=== PATIENT | female | born 2005 | race Caucasian/White ===

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

== ENCOUNTER → 2023-02-15 | Outpatient (CLI) | payer BC ==
[~2023-02-15] MED LIST: Norco 5-325 Ta1 EACH PO
[2023-02-15 11:55] LABS: BASOPHILS ABSOLUTE AUTO 0.04 K/mm3 (0.00-0.23); BASOPHILS PERCENT AUTO 1 % (0-2); EOSINOPHILS PERCENT AUTO 2 % (0-6); Hematocrit 40.9 % (33.0-51.0); Hemoglobin 14.2 g/dL (11.5-16.0); IMMATURE GRAN ABSOLUTE AUTO 0.02 K/mm3 (0.00-0.10); IMMATURE GRAN PERCENT AUTO 0 % (0-1); LYMPHOCYTES ABSOLUTE AUTO 2.24 K/mm3 (0.84-5.20); LYMPHOCYTES PERCENT AUTO 33 % (21-46); MONOCYTES ABSOLUTE AUTO 0.34 K/mm3 (0.16-1.47); MONOCYTES PERCENT AUTO 5 % (4-13); Mean Corpuscular HGB 30.9 pg (26.0-34.0); Mean Corpuscular HGB Conc 34.7 g/dL (31.5-36.5); Mean Corpuscular Volume 89 fL (80-100); Mean Platelet Volume 9.5 fL (9.1-12.4); NEUTROPHILS ABSOLUTE AUTO 4.08 K/mm3 (1.96-9.15); NEUTROPHILS PERCENT AUTO 60 % (41-73); Platelet Count 285 K/mm3 (150-400); RDW Coefficient Variation 12.9 % (11.7-14.2); RDW Standard Deviation 41.8 fL (35.1-46.3); Red Blood Cell Count 4.59 M/mm3 (3.80-5.20); White Blood Cell Count 6.82 K/mm3 (4.00-11.30)
[2023-02-15 12:21] LABS: Albumin, Blood 3.8 g/dL (3.4-5.0); Albumin/Globulin Ratio 1.1 (0.8-1.8); Bilirubin, Total 0.3 mg/dL (0.1-1.0); Bun/Creatinine Ratio 15.7 (12.0-20.0); Calcium, Blood 9.2 mg/dL (8.5-10.1); Creatinine, Blood 0.7 mg/dL (0.40-1.00); Globulin, Blood 3.4 g/dL (2.2-4.0); Potassium, Blood 3.9 mmol/L (3.5-5.5); Total Protein, Blood 7.2 g/dL (6.4-8.2)
== END | disposition home or self-care (01) ==
LOC: LAB 11:47 → LAB SHORT 11:47
PROVIDERS: Physician Assistant
DX: R10.11 Right upper quadrant pain (principal); R10.31 Right lower quadrant pain
CPT/HCPCS: 80053; 85025

== ENCOUNTER 2024-03-31 23:24 | Inpatient (IN) | payer BC ==
[~2024-03-31] VITALS: Ht 170.2 cm; Wt 63.6 kg
[2024-03-31 23:39] VITALS: BP 180/98
[2024-03-31 23:40] VITALS: BP 152/90
[2024-04-01] VITALS (36 sets, daily range): BP systolic 112–171; BP diastolic 58–100
[2024-04-01] MEDS ORDERED: NIFEdipine 10 MG Cap ONE (00:05)
[2024-04-01] MEDS ORDERED: NIFEdipine 10 MG Cap PO PRN (00:05)
[2024-04-01 00:26] LABS: Hemoglobin 13.1 g/dL (11.5-16.0); Mean Corpuscular HGB 30.8 pg (26.0-34.0); Mean Corpuscular HGB Conc 35.4 g/dL (31.5-36.5); Mean Corpuscular Volume 87 fL (80-100); Mean Platelet Volume 11.1 fL (9.1-12.4); Platelet Count 176 K/mm3 (150-400); RDW Coefficient Variation 13.2 % (11.7-14.2); RDW Standard Deviation 41.5 fL (35.1-46.3); Red Blood Cell Count 4.25 M/mm3 (3.80-5.20)
[2024-04-01 00:31] LABS: White Blood Cell Count 11.97 K/mm3 (4.00-11.30)
[2024-04-01 00:43] LABS: BASOPHILS PERCENT MAN 0 % (0-2); EOSINOPHILS PERCENT MAN 0 % (0-6); LYMPHOCYTES ABSOLUTE MAN 1.07 K/mm3 (0.84-5.20); LYMPHOCYTES PERCENT MAN 9 % (21-46); MONOCYTES ABSOLUTE MAN 0.23 K/mm3 (0.16-1.47); MONOCYTES PERCENT MAN 2 % (4-13); NEUTROPHILS ABSOLUTE MAN 10.65 K/mm3 (1.96-9.15); SEG NEUTROPHILS PERCENT MAN 89 % (41-73); TOTAL CELLS COUNTED 100
[2024-04-01] MEDS ORDERED: Lactated Ringer's 1,000 ML IV ONE (00:47)
[2024-04-01 00:50] LABS: Creatinine, Urine Random 42.8 mg/dL (27.00-270.00); Protein, Urine Random 53.2 mg/dL (0.0-11.9); Protein/Creat Ratio, Ur Random 1.2
[2024-04-01] MEDS ORDERED: Labetalol HCL 100 MG TAB PO ONE (00:55)
[2024-04-01] MEDS ORDERED: Bupivacaine 0.5% HCl 5 MG/ML 30MLVIAL XX SCH (01:00)
[2024-04-01] MEDS ORDERED: Lidocaine HCl 1% 30 ML SDV XX SCH (01:00)
[2024-04-01] MEDS ORDERED: Castor Oil 59.146 ML BTL TOP SCH (01:00)
[2024-04-01] MEDS ORDERED: Misoprostol 200 MCG Tab PR SCH (01:00)
[2024-04-01] MEDS ORDERED: Oxytocin 10 Unit / ML Vial IM SCH (01:00)
[2024-04-01] MEDS ORDERED: LR Oxytocin 20 Units 1,000 ML IV SCH ×2 (01:00→03:05)
[2024-04-01] MEDS ORDERED: Methylergonovine Maleate 0.2MG / ML 1ML Amp IM SCH (01:00)
[2024-04-01] MEDS ORDERED: Bupivacaine HCl 2.5 MG/ML 10ML P/F Injection XX SCH (01:00)
[2024-04-01] MEDS ORDERED: Lactated Ringer's 1,000 ML IV PRN (01:00)
[2024-04-01] MEDS ORDERED: PRENATAL TABLE1 EAC2 PO (01:10)
[2024-04-01] MEDS ORDERED: CeFAZolin Sodium 2,000 MG in NS 100 ML IV SCH (01:15)
[2024-04-01] MEDS ORDERED: Lactated Ringer's 1,000 ML IV SCH ×4 (01:15→03:50)
[2024-04-01] MEDS ORDERED: Betamethasone Sod Phos/Acetate 6 MG/ML 5ML VIAL ONE (01:20)
[2024-04-01] MEDS ORDERED: Betamethasone Sod Phos/Acetate 6 MG/ML 5ML VIAL IM ONE (01:25)
[2024-04-01 01:31] LABS: Albumin, Blood 2.8 g/dL (3.4-5.0); Albumin/Globulin Ratio 0.8 (0.8-1.8); Bilirubin, Total 0.2 mg/dL (0.1-1.0); Bun/Creatinine Ratio 19.7 (12.0-20.0); Creatinine, Blood 0.56 mg/dL (0.40-1.00); Globulin, Blood 3.6 g/dL (2.2-4.0); Potassium, Blood 3.9 mmol/L (3.5-5.5); Total Protein, Blood 6.4 g/dL (6.4-8.2)
[2024-04-01 01:53] LABS: International Normalized Ratio 0.89; Prothrombin Time Results 9.6 Sec (9.7-11.5)
[2024-04-01] MEDS ORDERED: FentaNYL Citrate 50 MCG/ML 2 ML Injection ONE (01:53)
[2024-04-01] MEDS ORDERED: Oxytocin 10 Unit / ML Vial ONE (02:08)
[2024-04-01] MEDS ORDERED: Magnesium Sul 4 GM/Water100 ML 100 ML IV ONE ×2 (02:31→02:40)
[2024-04-01 02:36] LABS: pH Umbilical Cord - Venous 7.29 (7.26-7.35)
[2024-04-01 02:37] LABS: PCO2 Cord - Venous 52.9 mmHg (40-50)
[2024-04-01 02:38] LABS: PO2 Cord - Venous < 14 mmHg (28-32)
[2024-04-01 02:39] LABS: PCO2 Cord - Arterial 57 mmHg (40-50); PO2 Cord - Arterial < 14 mmHg (16-20); pH Cord - Arterial 7.27 (7.28-7.35)
[2024-04-01] MEDS ORDERED: Magnesium Sulfate 500 ML IV SCH (02:40)
[2024-04-01] MEDS ORDERED: Calcium Gluconate 0.465 mEq/ml 10 ml Vial IV PRN (02:40)
[2024-04-01] MEDS ORDERED: Acetaminophen 500 MG Tab PO PRN (03:05)
[2024-04-01] MEDS ORDERED: DiphenhydrAMINE HCL 25 MG Cap PO PRN (03:05)
[2024-04-01] MEDS ORDERED: FentaNYL Citrate 50 MCG/ML 2 ML Injection IV PRN (03:05)
[2024-04-01 03:07] LABS: Source, Urine Clean Catch
--- NOTE | 2024-04-01 03:07 | NUR ---
04/01/24 0307 Christa Yu BABY BORN AT 0212
[2024-04-01 03:10] LABS: Bilirubin, Urine Neg (Neg); Blood, Urine Neg (Neg); Glucose Qualitative, Urine Neg (Neg); Ketones, Urine Neg (Neg); Leukocyte Esterase, Urine Neg (Neg); Nitrite, Urine Neg (Neg); Protein, Urine 3+ (Neg); Urobilinogen, Urine NORM (Normal)
[2024-04-01] MEDS ORDERED: Ondansetron HCl 2 MG / ML 2ML Vial IV PRN (03:10)
[2024-04-01] MEDS ORDERED: OxyCODONE HCL 5 MG TAB PO PRN ×2 (03:10→03:45)
[2024-04-01] MEDS ORDERED: Misoprostol 200 MCG Tab PR PRN (03:10)
[2024-04-01] MEDS ORDERED: Lanolin Cream TOP PRN (03:10)
[2024-04-01] MEDS ORDERED: Simethicone 80 MG Chew PO PRN (03:10)
[2024-04-01 03:19] LABS: Appearance, Urine Hazy (Clear); Color, Urine Pale Yellow (P-Yellow)
[2024-04-01 03:20] LABS: Amorphous Light (0-Heavy); Bacteria Few /hpf; Red Blood Cells, Urine Not Seen /hpf (0-2); Squamous Epithelial Cells Mod /hpf (Few); White Blood Cells, Urine 0-2 /hpf (0-5)
[2024-04-01] MEDS ORDERED: Ketorolac Tromethamine 30mg Vial IV SCH (04:00)
--- NOTE | 2024-04-01 05:20 | NUR ---
abdominal dressing saturated with serousangiunous drainage and replaced by this RN
--- NOTE | 2024-04-01 06:09 | NUR ---
AT 0530 - DRESSING OVER 50% SATURATED, DRAINAGE OUTLINED. PRESSURE DRESSING APPLIED AND COVERED WITH ABDOMINAL BINDER.
--- NOTE | 2024-04-01 06:17 | NUR ---
PT SET UP AND PUMPING AT 0545. EDUCATION PROVIDED REGARDING SAME. PT AWARE TO PUMP FOR 15 MINUTES
[2024-04-01 06:32] LABS: BASOPHILS ABSOLUTE AUTO 0.01 K/mm3 (0.00-0.23); BASOPHILS PERCENT AUTO 0 % (0-2); EOSINOPHILS PERCENT AUTO 0 % (0-6); Hemoglobin 12.4 g/dL (11.5-16.0); IMMATURE GRAN ABSOLUTE AUTO 0.08 K/mm3 (0.00-0.10); IMMATURE GRAN PERCENT AUTO 1 % (0-1); LYMPHOCYTES ABSOLUTE AUTO 0.85 K/mm3 (0.84-5.20); LYMPHOCYTES PERCENT AUTO 6 % (21-46); MONOCYTES ABSOLUTE AUTO 0.12 K/mm3 (0.16-1.47); MONOCYTES PERCENT AUTO 1 % (4-13); Mean Corpuscular HGB 30.9 pg (26.0-34.0); Mean Corpuscular HGB Conc 35.4 g/dL (31.5-36.5); Mean Corpuscular Volume 87 fL (80-100); Mean Platelet Volume 10.5 fL (9.1-12.4); NEUTROPHILS ABSOLUTE AUTO 13.43 K/mm3 (1.96-9.15); NEUTROPHILS PERCENT AUTO 93 % (41-73); Platelet Count 172 K/mm3 (150-400); RDW Standard Deviation 41.1 fL (35.1-46.3); Red Blood Cell Count 4.01 M/mm3 (3.80-5.20); White Blood Cell Count 14.49 K/mm3 (4.00-11.30)
[2024-04-01 07:05] LABS: Albumin, Blood 2.5 g/dL (3.4-5.0); Albumin/Globulin Ratio 0.7 (0.8-1.8); Bilirubin, Total 0.2 mg/dL (0.1-1.0); Bun/Creatinine Ratio 15.4 (12.0-20.0); Calcium, Blood 8.3 mg/dL (8.5-10.1); Creatinine, Blood 0.46 mg/dL (0.40-1.00); Globulin, Blood 3.4 g/dL (2.2-4.0); Total Protein, Blood 5.9 g/dL (6.4-8.2)
[2024-04-01] MEDS ORDERED: Prenatal Vit/FE Fumarate/FA 1 Tab PO SCH (09:00)
[2024-04-01] MEDS ORDERED: Ibuprofen 400 MG Tab PO SCH (16:00)
--- NOTE | 2024-04-01 19:17 | NUR ---
REPORT TO [facility]
[2024-04-01] MEDS ORDERED: IBUP400 PO (19:26)
[2024-04-01] MEDS ORDERED: OXAYDO5 M1 PO (19:26)
[2024-04-01] MEDS ORDERED: ACET500 PO (19:26)
[2024-04-01] MEDS ORDERED: COLACE100 MG PO (19:28)
--- NOTE | 2024-04-01 20:33 | NUR ---
MAGNESIUM INFUSION OFF AT 199904/01/24
--- NOTE | 2024-04-01 21:01 | NUR ---
D/C TEACHING COMPLETED. ALL QUESTIONS AND CONCERNS ANSWERED, NO FURTHER QUESTIONS FROM PATIENT. INSTRUCTED TO CALL 'S OFFICE AND/OR [facility] IF ANY QUESTIONS OR CONCERNS COME UP. WARNING SIGNS OF PRE-ECLAMPSIA SUCH NAUSEA, EPIGASTRIC PAIN, SUDDEN SWELLING, VISUAL DISTURBANCES, AND HEADAHCE REVIEWED. PPFU WITH SCHEDULED FOR TUESDAY, AND WITH [facility] CALL FOR TUESDAY. IV REMOVED. PATIENT D/C HOME. VSS.
== END 2024-04-01 21:24 | disposition home or self-care (01) | DRG 788 ==
LOC: OBS 23:24 → BC 23:24 → OBS 04-01 00:51 → BC 04-01 00:52
PROVIDERS: Obstetrics & Gynecology; ADMIT Advanced Practice Midwife
PROC: 10D00Z1 Extraction of Products of Conception, Low, Open Approach (ICD-10-PCS; principal; 2024-04-01 01:30)
DX: O14.24 HELLP syndrome, complicating childbirth (principal); O45.93 Premature separation of placenta, unspecified, third trimester; Z3A.32 32 weeks gestation of pregnancy; Z37.0 Single live birth; Z87.891 Personal history of nicotine dependence; Z79.899 Other long term (current) drug therapy; O76 Abnormality in fetal heart rate and rhythm complicating labor and delivery; O69.81X0 Labor and delivery complicated by cord around neck, without compression, not applicable or unspecified; Z98.890 Other specified postprocedural states
CPT/HCPCS: 36415; 80053; 81001; 81003; 82570; 82731; 82803; 83615; 84156; 85025; 85384; 85610; 85730; 86850; 86900; 86901; 86920; A9270; J0690; J0702; J1885; J2590; J3010; J3475; J7120